=== PATIENT | female | born 1990 | race Two or more races ===

== ENCOUNTER 2024-11-07 18:37 | Emergency (ER) | payer MEDICAID, OTHER ==
[2024-11-07 18:38] VITALS: BP 131/82; PULSE 94; RESP 16; TEMP 98.2; O2SAT 96
== END 2024-11-07 20:47 | disposition left against medical advice (07) ==
LOC: ER 18:37
DX: K13.79 Other lesions of oral mucosa (principal); Z53.21 Procedure and treatment not carried out due to patient leaving prior to being seen by health care provider